=== PATIENT | female | born 1965 | race Caucasian/White ===

== ENCOUNTER → 2021-09-24 | Outpatient (CLI) | payer OTHER, SELFPAY ==
[2021-09-24 12:23] LABS: Cholesterol 254 mg/dL (200); High Density Lipoprotein 59 mg/dL; Triglycerides 124 mg/dL; Very Low Density Lipoprotein 25 mg/dL (5-40)
[2021-09-24 12:25] LABS: Vitamin D,25 Hydroxy 42.4 ng/mL
[2021-09-24 12:30] LABS: BNP,B-Type NATRIURETIC PEPTIDE 12.7 pg/mL (0-100)
[2021-09-27 00:06] LABS: Red Blood Cell Count Test/G6PD 4.74 x10E6/uL (3.77-5.28)
[2021-09-27 08:51] LABS: G6PD Quant Test 234 (127-427)
== END | disposition home or self-care (01) ==
LOC: MTLAB 09:59
PROVIDERS: Referring Provider Nurse Practitioner Family; Visit Provider Nurse Practitioner Family
DX: R53.82 Chronic fatigue, unspecified (principal); M62.81 Muscle weakness (generalized)
CPT/HCPCS: 36415; 80061; 82306; 82955; 83880

== ENCOUNTER → 2021-10-08 | Outpatient (CLI) | payer OTHER, SELFPAY ==
[2021-10-08 12:15] LABS: Color, Urine Yellow (Yellow); Glucose, Dipstick Normal (Normal); Ketone-Dipstick Negative (Negative); Leukocyte Esterase-Dipstick 500 /ul (Negative); Nitrite-Dipstick Negative (Negative); Occult Blood-Urine Negative /ul (Negative); Protein-Dipstick Negative (Negative); Urine Bilirubin Dipstick Negative (Negative); Urine Clarity Sl. Cloudy (Clear); Urine Urobilinogen Normal (Normal)
== END | disposition home or self-care (01) ==
LOC: MTLAB 09:51
PROVIDERS: Referring Provider Nurse Practitioner Family; Visit Provider Nurse Practitioner Family
DX: R53.82 Chronic fatigue, unspecified (principal)
CPT/HCPCS: 81002